=== PATIENT | female | born 2000 | race Caucasian/White ===

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

== ENCOUNTER 2018-10-31 03:04 | Emergency (ER) | payer SELFPAY ==
[~2018-10-31] VITALS: Ht 154.9 cm; Wt 57.9 kg
[~2018-10-31 03:04] MED LIST: BACITUD TOP; CEPH-443 PO
[2018-10-31 03:08] VITALS: Ht 154.9 cm; Wt 57.9 kg
--- NOTE | 2018-10-31 03:22 | ERD ---
ER Documentation Chief Complaint Chief Complaint PT STATES HEART RACING AT 1AM, DENIES ANY PAIN, C/O SHAKINESS HPI 18-year-old woman complains of palpitations, anxiety, sadness, crying, sharp nonexertional nonradiating chest pain while laying in bed with her boyfriend. Patient states she has had multiple similar episodes in the past and sometimes feels depressed and anxious. She denies suicidal homicidal ideation. Symptoms were unprovoked. She denies recent weight loss, no fevers or chills, no cough, no vomiting or diarrhea, no abdominal pain, no headache or blurry vision. ROS All systems reviewed and are negative except as per history of present illness. Medications Home Meds Active Scripts Bacitracin* (Bacitracin Oint (UD)*) 1 Applic Oint, 1 APPLIC TOP ONCE for 5 Days, PKT APPLY TO Prov:JOSE,NGOZI C 12/31/16 Cephalexin* (Keflex*) 500 Mg Capsule, 500 MG PO BID for 7 Days, CAP Prov:JOSE,NGOZI C 12/31/16 Allergies Allergies: Coded Allergies: No Known Allergy (Unverified , 12/31/16) PMhx/Soc Hx Alcohol Use: No Hx Substance Use: No Hx Tobacco Use: No FmHx Family History: No diabetes Physical Exam Vitals Vital Signs Date Temp Pulse Resp B/P (MAP) Pulse Ox O2 O2 Flow FiO2 Time Delivery Rate 10/31/18 112 18 117/66 100 Room Air 03:41 (83) 10/31/18 98.2 114 20 135/72 99 03:08 (93) Physical Exam GENERAL: Well-developed, well-nourished, well-hydrated, anxious in appearance, afebrile NEURO: Alert and oriented 3, cranial nerves II through XII intact bilaterally, pupils equal round reactive to light, no focal deficits or facial asymmetry, sensation intact distally Strength 5/5 in upper and lower extremities bilaterally CARDIAC: Tachycardic and regular, no murmurs rubs or gallops LUNGS: Clear bilaterally no wheezing crackles or stridor SKIN: Warm and dry to touch, no abrasions, contusions, or hematomas, no lacerations, no ecchymosis, no target lesions, and without ulcers EXTREMITIES: No clubbing cyanosis or edema, calves are bilaterally symmetrical, no Homans sign, no popliteal cord sign. Distal pulses equal and bilateral PSYCH: Anxious Results 24 hrs Current Medications Medications Dose Sig/Marcellus Start Time Status Last (Trade) Ordered Route PRN Stop Time Admin Dose Reason Admin Lorazepam 0.5 mg ONCE ONCE 10/31/18 DC 10/31/18 (Ativan) PO 04:00 10/31/18 03:55 04:01 Procedures/MDM patient was placed on hall monitor rhythm strip revealed a narrow complex tachycardia at 120 bpm with upright P and T waves. Patient was afebrile EKG performed, read by me revealed a sinus tachycardia at 118 bpm, normal axis, narrow QRS complex, no concerning ST elevations or depressions noted I administered Ativan 0.5 mg p.o. x1. Patient's tachycardia and palpitations resolved, vital signs are normal at this time and she looks well. I suspect early depression and anxiety and recommended outpatient management with her PMD for the psychology/psychiatrist referral. Patient has no concerning points on physical exam and has no suicidal homicidal ideation. She is medically cleared for outpatient management. Differential diagnoses considered, included but not limited to acute coronary syndrome, pulmonary embolism, aortic dissection, abdominal aortic aneurysm, sepsis, stroke, meningitis, encephalitis, pneumonia, appendicitis, cholecystitis, bowel obstruction, pyelonephritis, nephrolithiasis, cystitis, as well as metabolic, hematologic, and electrolyte abnormalities. As well as abscess, cellulitis, fractures, and dislocations. Patient feels much better at this time, and vital signs are normal, symptoms have improved. I did give strict instructions to return to the ED if symptoms continue or worsen, patient will otherwise follow-up with primary care physician. Patient understood instructions and agreed to plan. Disclaimer: Inadvertent spelling and grammatical errors are likely due to EHR/dictation software use and do not reflect on the overall quality of patient care. Also, please note that the electronic time recorded on this note does not necessarily reflect the actual time of the patient encounter. Departure Diagnosis: Primary Impression: Palpitations Additional Impressions: Anxiety Depression Depression Type: unspecified Qualified Codes: F32.9 - Major depressive disorder, single episode, unspecified Condition: SAWYER Clark MD Oct 31, 2018 03:22
[2018-10-31] MEDS ORDERED: LORAZEPAM 0.5 MG TAB PO ONE (04:00)
[2018-10-31 05:05] VITALS: BP 107/79; PULSE 84; RESP 14
== END 2018-10-31 05:05 | disposition home or self-care (01) ==
LOC: E/R 03:04
DX: R00.2 Palpitations (principal); F41.8 Other specified anxiety disorders
CPT/HCPCS: 93005